=== PATIENT | female | born 1945 | race Caucasian/White ===

== ENCOUNTER → 2018-11-18 | Outpatient (CLI) | payer MEDICARE ==
[~2018-11-18] VITALS: Ht 152.4 cm; Wt 64.9 kg
[~2018-11-18] MED LIST: ALBU18HF7 IH; ALPR-410 PO; ARFO15VI3 IH; DOXY100C2 PO; LEVA0.6319 IH; METO25TA6 PO; MOME13HF3 IH; OMEG1CAP67 PO; PRAV80TA21 PO; PRED20B PO; REGADENOSON 0.4 MG/5 ML PF SYG IVP SCH; SERT100T PO; SERT50TA PO; VALS1TAB2 PO
== END | disposition home or self-care (01) ==
LOC: SHCH 08:30
PROVIDERS: ATTEND Internal Medicine Cardiovascular Disease
DX: I25.10 Atherosclerotic heart disease of native coronary artery without angina pectoris (principal)
CPT/HCPCS: 78452; 93017; 96374; A9500 ×2; J2785

== ENCOUNTER 2018-12-20 11:03 | Inpatient (IN) | payer MEDICARE ==
[~2018-12-20] VITALS: Ht 152.4 cm; Wt 66.4 kg
[~2018-12-20 11:03] MED LIST changes: -REGADENOSON 0.4 MG/5 ML PF SYG IVP SCH
[2018-12-20 11:50] LABS: ABG BASE EXCESS 4.5 mmol/L (-2.0-3.0); ABG HCO3 29.5 mmol/L (21.0-28.0); ABG OXYGEN SATURATION 89.1 % (95.0-99.0); ABG PCO2 45 mmHg (32-45)
[2018-12-20 12:07] LABS: BASOPHILS % (AUTO) 0.9 % (0.0-5.0); EOSINOPHILS % (AUTO) 3.5 % (0.0-8.0); HEMATOCRIT 26.7 % (36-48); LYMPHOCYTES % (AUTO) 13.2 % (21.0-51.0); MEAN CORPUSCULAR HEMOGLOBIN 28.2 pg (27.0-33.0); MEAN CORPUSCULAR VOLUME 88.1 fL (79-99); MONOCYTES % (AUTO) 8.4 % (3.0-13.0); PLATELET COUNT (AUTO) 269 K/uL (130-400); RED BLOOD CELL COUNT(AUTO) 3.03 MIL/uL (4.00-5.50); RED CELL DISTRIBUTION WIDTH 18.3 % (11.0-15.5); WHITE BLOOD COUNT (AUTO) 6.9 K/uL (4.8-10.8)
[2018-12-20 12:20] LABS: CARBON DIOXIDE 31 mmol/L (21-32); CHLORIDE 104 mmol/L (101-111); CREATININE 0.6 mg/dL (0.5-1.5); GLOMERULAR FILTR. RATE CALC 104 mL/min (>60); GLUCOSE,RANDOM 100 mg/dL (70-105); PARTIAL THROMBOPLASTIN TIME 21.8 SEC (26.3-35.5); POTASSIUM 4.8 mmol/L (3.5-5.1); PROTHROMBIN TIME 10.5 SEC (9.6-11.6); SODIUM SERUM 142 mmol/L (136-145); UREA NITROGEN, BLOOD 10 mg/dL (7-18)
[2018-12-20 12:24] LABS: ALANINE AMINOTRANSFERASE 28 U/L (12-78); ALBUMIN 3.4 g/dL (3.5-5.0); ASPARTATE AMINOTRANSFERASE 33 U/L (10-37); BILIRUBIN,DIRECT < 0.1 mg/dL (0.0-0.3); BILIRUBIN,TOTAL 0.2 mg/dL (0.2-1.0); CREATINE KINASE, TOTAL 121 U/L (21-232); TOTAL PROTEIN, SERUM 6.8 g/dL (6.0-8.3)
[2018-12-20] MEDS ORDERED: IPRATROPIUM/ALBUTEROL SULFATE 3 ML SOLUTION IH ONE ×2 (12:25→16:12)
[2018-12-20] MEDS ORDERED: METHYLPREDNISOLONE SOD SUCC 125MG/2ML VIAL ONE (12:27)
[2018-12-20] MEDS ORDERED: ACETAMINOPHEN 325 MG TAB PO PRN ×2 (14:00)
[2018-12-20] MEDS: IPRATROPIUM/ALBUTEROL SULFATE 3 ML SOLUTION IH SCH ×3 (16:17→22:16)
[2018-12-20] MEDS ORDERED: BENZONATATE 100 MG CAPSULE PO ONE ×2 (16:42→21:22)
[2018-12-20] MEDS ORDERED: ONDANSETRON HCL 4 MG/2 ML VIAL IVP PRN (19:15)
[2018-12-20] MEDS: METHYLPREDNISOLONE SOD SUCC 125MG/2ML VIAL IVP SCH (20:00)
[2018-12-20] MEDS: BENZONATATE 100 MG CAPSULE PO SCH (21:00)
[2018-12-20] MEDS ORDERED: METHYLPREDNISOLONE SOD SUCC 40MG/ML 1ML ONE (21:21)
[2018-12-20] MEDS ORDERED: FAMOTIDINE 20MG TAB 20 MG TAB ONE (21:22)
[2018-12-20] MEDS ORDERED: CLOP75TA14 PO (23:25)
[2018-12-20] MEDS ORDERED: TIOT18CA3 IH (23:48)
[2018-12-21] MEDS ORDERED: PNEUMOCOCCAL VACCINE POLYVALENT 0.5 ML/VIAL [PPV] IM ONE ×2 (00:15)
[2018-12-21] MEDS: IPRATROPIUM/ALBUTEROL SULFATE 3 ML SOLUTION IH SCH ×6 (01:34→21:35)
[2018-12-21] MEDS: METHYLPREDNISOLONE SOD SUCC 125MG/2ML VIAL IVP SCH ×5 (02:00→21:07)
[2018-12-21] MEDS ORDERED: METHYLPREDNISOLONE SOD SUCC 40MG/ML 1ML ONE ×2 (05:53→12:47)
[2018-12-21] MEDS ORDERED: ENOXAPARIN SODIUM 30 MG/0.3 ML SQ ONE (08:00)
[2018-12-21] MEDS ORDERED: BENZONATATE 100 MG CAPSULE PO ONE (08:00)
[2018-12-21] MEDS ORDERED: FAMOTIDINE 20MG TAB 20 MG TAB ONE (08:00)
[2018-12-21] MEDS: FAMOTIDINE 20MG TAB 20 MG TAB PO SCH (09:00)
[2018-12-21] MEDS: BENZONATATE 100 MG CAPSULE PO SCH ×4 (09:00→21:07)
[2018-12-21] MEDS: ENOXAPARIN SODIUM 30 MG/0.3 ML SQ SCH (09:00)
[2018-12-21] MEDS ORDERED: IPRATROPIUM/ALBUTEROL SULFATE 3 ML SOLUTION IH ONE ×2 (09:35→13:29)
--- NOTE | 2018-12-21 12:02 | NUR ---
DCP: HOME met with pt and her Reinaldo Cook [phone]. Pt states they do not live together but are still . Pt reports she is independent of all ADLS, have no DME or in home care services. Plan is to [place] home at [place] Addendum: 12/21/18 at 1204 by AISLINN PANTOJA SS Amended: Links added.
[2018-12-21 14:10] VITALS: BP 152/71
[2018-12-21 16:27] VITALS: BP 159/67
[2018-12-21 19:12] VITALS: BP 125/61
[2018-12-21] MEDS: SIMVASTATIN 20 MG TABLET PO SCH (19:52)
[2018-12-21] MEDS: METOPROLOL TARTRATE 25 MG TAB PO SCH (19:52)
[2018-12-21] MEDS: ALPRAZOLAM 0.5 MG TABLET PO PRN (21:17)
[2018-12-21] MEDS: AZITHROMYCIN 500MG+NS 250ML 250 ML IV SCH (22:42)
[2018-12-21 23:38] VITALS: BP 133/72
[2018-12-22] MEDS: IPRATROPIUM/ALBUTEROL SULFATE 3 ML SOLUTION IH SCH ×6 (02:02→21:41)
[2018-12-22] MEDS: METHYLPREDNISOLONE SOD SUCC 125MG/2ML VIAL IVP SCH ×2 (02:21→08:44)
[2018-12-22 03:39] VITALS: BP 141/76
[2018-12-22 05:24] LABS: BASOPHILS % (AUTO) 0.1 % (0.0-5.0); HEMATOCRIT 23.7 % (36-48); LYMPHOCYTES % (AUTO) 3.5 % (21.0-51.0); MEAN CORPUSCULAR HEMOGLOBIN 28.7 pg (27.0-33.0); MEAN CORPUSCULAR HGB CONC 32.9 g/dL (32.0-36.0); MEAN CORPUSCULAR VOLUME 87.3 fL (79-99); MONOCYTES % (AUTO) 2.2 % (3.0-13.0); NEUTROPHILS % (AUTO) 94.2 % (40.0-77.0); PLATELET COUNT (AUTO) 265 K/uL (130-400); RED BLOOD CELL COUNT(AUTO) 2.72 MIL/uL (4.00-5.50); WHITE BLOOD COUNT (AUTO) 5.8 K/uL (4.8-10.8)
[2018-12-22 05:39] LABS: ALBUMIN 3.4 g/dL (3.5-5.0); BILIRUBIN,TOTAL 0.2 mg/dL (0.2-1.0); CREATININE 0.6 mg/dL (0.5-1.5); POTASSIUM 4.2 mmol/L (3.5-5.1); TOTAL PROTEIN, SERUM 6.7 g/dL (6.0-8.3)
[2018-12-22 07:54] VITALS: BP 162/87
[2018-12-22] MEDS: ENOXAPARIN SODIUM 30 MG/0.3 ML SQ SCH (08:44)
[2018-12-22] MEDS: FAMOTIDINE 20MG TAB 20 MG TAB PO SCH (08:44)
[2018-12-22] MEDS: METOPROLOL TARTRATE 25 MG TAB PO SCH ×2 (08:44→22:34)
[2018-12-22] MEDS: CLOPIDOGREL BISULFATE 75 MG TAB PO SCH (08:45)
[2018-12-22] MEDS: BENZONATATE 100 MG CAPSULE PO SCH ×3 (08:45→22:36)
[2018-12-22 11:43] VITALS: BP 164/64
[2018-12-22] MEDS ORDERED: CEFTRIAXONE SODIUM 2 GM VIAL IVP SCH (12:00)
[2018-12-22] MEDS: LOSARTAN 50 MG TABLET PO SCH (12:00)
[2018-12-22] MEDS: GUAIFENESIN/DEXTROMETHORPHAN 1 EACH TAB.SR.12H PO SCH ×2 (12:00→22:34)
[2018-12-22] MEDS ORDERED: SODIUM CHLORIDE 0.9% 1000ML 1,000 ML IV SCH (12:01)
[2018-12-22] MEDS ORDERED: GUAIFENESIN 600 MG TABLET.ER PO ONE (12:11)
[2018-12-22] MEDS ORDERED: LOSARTAN 50 MG TABLET ONE (12:11)
[2018-12-22] MEDS ORDERED: CEFTRIAXONE SODIUM 1 GM ONE (12:13)
[2018-12-22] MEDS: PHARMACY COMMUNICATION MISC SCH ×2 (12:45→20:45)
[2018-12-22] MEDS ORDERED: FUROSEMIDE 10 MG/ML 4ML VIAL ONE (14:25)
[2018-12-22] MEDS ORDERED: FUROSEMIDE 10 MG/ML 2ML VIAL IV SCH ×2 (14:30→16:00)
[2018-12-22] MEDS ORDERED: MAGNESIUM 2GM PREMIX 50ML 50 ML IV PRN (14:30)
[2018-12-22 14:37] LABS: ABG BASE EXCESS -6.7 mmol/L (-2.0-3.0); ABG HCO3 21.9 mmol/L (21.0-28.0); ABG OXYGEN SATURATION 87.2 % (95.0-99.0); ABG PCO2 60 mmHg (32-45)
[2018-12-22] MEDS ORDERED: METHYLPREDNISOLONE SOD SUCC 125MG/2ML VIAL IVP SCH (15:00)
[2018-12-22] MEDS ORDERED: SODIUM BICARB 50MEQ 50ML VIAL IV SCH (15:15)
--- NOTE | 2018-12-22 15:26 | NUR ---
ARRIVAL TO ROOM 226 PT IS AAOX3 DENIES CP DENIES NV, STATES SOB ON EXERTION, BUT IS CALM NOW. CURRENTLY ON NONREBREAHTER MASK. FAMILY IS AT BEDSIDE, CALL LIGHT WITHIN REACH.
[2018-12-22 15:30] VITALS: BP 165/104
[2018-12-22] MEDS: METHYLPREDNISOLONE SOD SUCC 40MG/ML 1ML IVP SCH ×2 (15:37→22:36)
--- NOTE | 2018-12-22 18:27 | NUR ---
STATUS RESTING IN BED NO COMPLAINTS, REMAINS ON BIPAP. TOLERATING WELL.
[2018-12-22 19:00] VITALS: BP 134/68
[2018-12-22] MEDS ORDERED: NON-FORMULARY MEDICATION 1 EACH (Sertraline HCl (Zoloft) 100 MG) PO SCH (21:00)
[2018-12-22] MEDS: VALSARTAN PO SCH (21:00)
[2018-12-22] MEDS: HYDROCHLOROTHIAZIDE PO SCH (21:00)
[2018-12-22] MEDS: DOCUSATE SODIUM 100 MG CAP PO SCH (22:34)
[2018-12-22] MEDS: SERTRALINE HCL 50 MG TABLET PO SCH (22:35)
[2018-12-22] MEDS: SIMVASTATIN 20 MG TABLET PO SCH (22:35)
[2018-12-22] MEDS: SENNOSIDES 8.6 MG TABLET PO SCH (22:35)
[2018-12-22] MEDS: AZITHROMYCIN 500MG+NS 250ML 250 ML IV SCH (22:36)
[2018-12-22 23:00] VITALS: BP 132/62
[2018-12-22] MEDS: ALPRAZOLAM 0.5 MG TABLET PO PRN (23:20)
[2018-12-23] MEDS: IPRATROPIUM/ALBUTEROL SULFATE 3 ML SOLUTION IH SCH ×6 (01:55→22:08)
[2018-12-23 03:50] LABS: BASOPHILS % (AUTO) 0.1 % (0.0-5.0); HEMATOCRIT 24.4 % (36-48); LYMPHOCYTES % (AUTO) 4.4 % (21.0-51.0); MEAN CORPUSCULAR HEMOGLOBIN 27.7 pg (27.0-33.0); MEAN CORPUSCULAR VOLUME 86.7 fL (79-99); MONOCYTES % (AUTO) 4.2 % (3.0-13.0); NEUTROPHILS % (AUTO) 91.3 % (40.0-77.0); PLATELET COUNT (AUTO) 312 K/uL (130-400); RED BLOOD CELL COUNT(AUTO) 2.81 MIL/uL (4.00-5.50); RED CELL DISTRIBUTION WIDTH 18.4 % (11.0-15.5)
[2018-12-23 04:00] VITALS: BP 142/72
[2018-12-23 04:08] LABS: CREATININE 0.7 mg/dL (0.5-1.5); MAGNESIUM 2.1 mg/dL (1.80-2.40); POTASSIUM 3.7 mmol/L (3.5-5.1)
[2018-12-23] MEDS: PHARMACY COMMUNICATION MISC SCH (04:45)
[2018-12-23] MEDS: METHYLPREDNISOLONE SOD SUCC 40MG/ML 1ML IVP SCH ×3 (06:25→21:33)
[2018-12-23] MEDS: LOSARTAN 50 MG TABLET PO SCH (07:25)
[2018-12-23] MEDS: METOPROLOL TARTRATE 25 MG TAB PO SCH ×2 (07:25→21:32)
[2018-12-23] MEDS: GUAIFENESIN/DEXTROMETHORPHAN 1 EACH TAB.SR.12H PO SCH ×2 (07:25→21:32)
[2018-12-23] MEDS: BENZONATATE 100 MG CAPSULE PO SCH ×3 (07:25→21:32)
[2018-12-23] MEDS: ENOXAPARIN SODIUM 30 MG/0.3 ML SQ SCH (07:25)
[2018-12-23] MEDS: CLOPIDOGREL BISULFATE 75 MG TAB PO SCH (07:25)
[2018-12-23] MEDS: FAMOTIDINE 20MG TAB 20 MG TAB PO SCH (07:25)
[2018-12-23 07:30] VITALS: BP 136/61
--- NOTE | 2018-12-23 07:30 | NUR ---
ASSESSMENT PT IS AAOX3 DENIES CP DENIES SOB DENIES NV NO COMPLAINTS AT THIS TIME, CURRENTLY ON O2 3LPM, RECEIVED NEB TREATMENT BY RT. VISITOR AT BEDSIDE, AM MEDS GIVEN AND TOLERATED. CALL LIGHT WITHIN REACH.
[2018-12-23 11:41] VITALS: BP 130/62
--- NOTE | 2018-12-23 12:22 | NUR ---
MBSS COMPLETED. SHALLOW TRANSIENT PENETRATION WITH THIN LIQUIDS VIA LARGE CUP SIP. RECOMMEND REGULAR TEXTURE, THIN LIQUIDS; PILLS WHOLE WITH LIQUIDS. Addendum: 12/23/18 at 1223 by IVON JOHNSON, [facility] Amended: Links added.
[2018-12-23 15:27] VITALS: BP 139/75
--- NOTE | 2018-12-23 15:35 | NUR ---
2D ECHO AT BEDSIDE
[2018-12-23] MEDS ORDERED: SODIUM CHLORIDE 3% FOR INHALATION 4 ML/AMP VIAL.NEB IH ONE ×2 (18:22→22:02)
[2018-12-23 19:00] VITALS: BP 142/69
--- NOTE | 2018-12-23 19:45 | NUR ---
SPOKE TO KARIME AWAD, ABOUT MARIA DOLORES ([id number]) FROM PHARMACY CONTACTING ME, LIZABETH WROTE ORDER FOR IRON SUCROSE 500MG QD AND IS QUESTIONING THE ORDER D/T PT HAS LOW BLOOD COUNT, KARIME WILL ADDRESS THE ISSUE.
[2018-12-23] MEDS ORDERED: COMPOUND IV MISC 1 EACH IVSOLN MISC PRN (20:00)
[2018-12-23] MEDS: VALSARTAN PO SCH (21:00)
[2018-12-23] MEDS: HYDROCHLOROTHIAZIDE PO SCH (21:00)
[2018-12-23] MEDS: SERTRALINE HCL 50 MG TABLET PO SCH (21:31)
[2018-12-23] MEDS: AZITHROMYCIN 500MG+NS 250ML 250 ML IV SCH (21:31)
[2018-12-23] MEDS: SENNOSIDES 8.6 MG TABLET PO SCH (21:31)
[2018-12-23] MEDS: DOCUSATE SODIUM 100 MG CAP PO SCH (21:32)
[2018-12-23] MEDS: SIMVASTATIN 20 MG TABLET PO SCH (21:33)
--- NOTE | 2018-12-23 22:20 | NUR ---
ASSESSMENT PT SITTING AT BEDSIDE, NC AT 3L, DENIES SOB, DENIES ANY CHEST PAIN, NO FAMILY AT BEDSIDE, CALL LIGHT WITHIN REACH.
[2018-12-23 23:00] VITALS: BP 163/74
[2018-12-23] MEDS: ALPRAZOLAM 0.5 MG TABLET PO PRN (23:34)
[2018-12-24] MEDS ORDERED: SODIUM CHLORIDE 3% FOR INHALATION 4 ML/AMP VIAL.NEB IH ONE (01:41)
[2018-12-24] MEDS: IPRATROPIUM/ALBUTEROL SULFATE 3 ML SOLUTION IH SCH ×4 (01:46→14:01)
[2018-12-24 03:00] VITALS: BP 153/74
[2018-12-24 03:48] LABS: MEAN CORPUSCULAR HGB CONC 31.9 g/dL (32.0-36.0); MEAN CORPUSCULAR VOLUME 87.6 fL (79-99); NUCLEATED RED BLOOD CELLS 0.1 % (0.0-0.19); PLATELET COUNT (AUTO) 260 K/uL (130-400); RED BLOOD CELL COUNT(AUTO) 2.86 MIL/uL (4.00-5.50); RED CELL DISTRIBUTION WIDTH 18.3 % (11.0-15.5); WHITE BLOOD COUNT (AUTO) 6.3 K/uL (4.8-10.8)
[2018-12-24 04:00] LABS: PHOSPHORUS 3.8 mg/dL (2.5-4.9)
[2018-12-24 04:37] LABS: % IRON SATURATION 2.5 % (22-44)
[2018-12-24] MEDS: METHYLPREDNISOLONE SOD SUCC 40MG/ML 1ML IVP SCH (05:32)
--- NOTE | 2018-12-24 07:00 | NUR ---
RESPIRATORY CULTURE HAS BEEN ATTEMPTED THREE TIMES, PER SWETA TO CONTINUE TO TRY AND COLLECT
[2018-12-24 08:03] VITALS: BP 141/74
[2018-12-24] MEDS ORDERED: IRON SUCROSE COMPLEX 100 MG in SODIUM CHLORIDE 0.9% 50 ML IV SCH (09:00)
[2018-12-24] MEDS ORDERED: EPOETIN ALFA 10,000 UNIT/ML VIAL SQ SCH (09:00)
[2018-12-24] MEDS ORDERED: METHYLPREDNISOLONE SOD SUCC 40MG/ML 1ML IVP SCH (09:15)
[2018-12-24] MEDS ORDERED: LEVOFLOXACIN 500 MG/D5W 100 ML 100 ML IV SCH (09:15)
[2018-12-24] MEDS: CLOPIDOGREL BISULFATE 75 MG TAB PO SCH (09:54)
[2018-12-24] MEDS: BENZONATATE 100 MG CAPSULE PO SCH ×2 (09:54→15:16)
[2018-12-24] MEDS: GUAIFENESIN/DEXTROMETHORPHAN 1 EACH TAB.SR.12H PO SCH (09:54)
[2018-12-24] MEDS: METOPROLOL TARTRATE 25 MG TAB PO SCH (09:54)
[2018-12-24] MEDS: LOSARTAN 50 MG TABLET PO SCH (09:54)
[2018-12-24] MEDS: ENOXAPARIN SODIUM 30 MG/0.3 ML SQ SCH (09:54)
[2018-12-24] MEDS: FAMOTIDINE 20MG TAB 20 MG TAB PO SCH (09:54)
[2018-12-24 11:46] VITALS: BP 159/76
--- NOTE | 2018-12-24 12:16 | NUR ---
FOLLOW UP COMPLETED. Pt CURRENTLY TOLERATING DIET. NO OVERT S/S OF ASPIRATION PRESENT DURING MEAL/TRIALS. SAFE SWALLOW PRECAUTIONS OF SMALL BITES AND SIPS AND SLOW RATE IN PLACE AT THIS TIME. MANAGER RAIL COORDINATED CARE WITH NURSE ESPARZA. MANAGER RAIL WILL CONTINUE TO FOLLOW Pt. Addendum: 12/24/18 at 1218 by IVON JOHNSON, [facility] Amended: Links added.
[2018-12-24] MEDS ORDERED: PNEUMOCOCCAL VACCINE POLYVALENT 0.5 ML/VIAL [PPV] ONE (15:09)
[2018-12-24 15:36] VITALS: BP_SYST 100; BP_SYST 154; BP_DIAS 70; BP_DIAS 77
--- NOTE | 2018-12-24 16:00 | NUR ---
GAVE REPORT TO [facility].
[2018-12-24] MEDS: ALPRAZOLAM 0.5 MG TABLET PO PRN (16:06)
--- NOTE | 2018-12-24 16:11 | NUR ---
PATIENT TAKEN BY EMS TO [facility].
== END 2018-12-24 16:10 | DRG 177 ==
LOC: EDH 11:03 → EDHIP 13:54 → 4AH 12-21 13:39 → 2DH 12-22 15:47
PROVIDERS: ADMIT Internal Medicine; ATTEND Internal Medicine
PROC: 3E0234Z Introduction of Serum, Toxoid and Vaccine into Muscle, Percutaneous Approach (ICD-10-PCS; 2018-12-21)
PROC: 5A09357 Assistance with Respiratory Ventilation, Less than 24 Consecutive Hours, Continuous Positive Airway Pressure (ICD-10-PCS; principal; 2018-12-22)
DX: J69.0 Pneumonitis due to inhalation of food and vomit (principal); I50.31 Acute diastolic (congestive) heart failure; J96.22 Acute and chronic respiratory failure with hypercapnia; J96.21 Acute and chronic respiratory failure with hypoxia; J44.1 Chronic obstructive pulmonary disease with (acute) exacerbation; J44.0 Chronic obstructive pulmonary disease with (acute) lower respiratory infection; I82.409 Acute embolism and thrombosis of unspecified deep veins of unspecified lower extremity; D64.9 Anemia, unspecified; I11.0 Hypertensive heart disease with heart failure; I25.10 Atherosclerotic heart disease of native coronary artery without angina pectoris; I73.9 Peripheral vascular disease, unspecified; J20.9 Acute bronchitis, unspecified; K21.9 Gastro-esophageal reflux disease without esophagitis; Z79.02 Long term (current) use of antithrombotics/antiplatelets; Z23 Encounter for immunization; Z79.82 Long term (current) use of aspirin; Z86.718 Personal history of other venous thrombosis and embolism; Z87.891 Personal history of nicotine dependence; Z90.710 Acquired absence of both cervix and uterus; Z99.81 Dependence on supplemental oxygen; Z90.49 Acquired absence of other specified parts of digestive tract; Z88.1 Allergy status to other antibiotic agents; Z88.0 Allergy status to penicillin; Z88.8 Allergy status to other drugs, medicaments and biological substances; I25.2 Old myocardial infarction
CPT/HCPCS: 36415; 36600; 71045; 71250; 74230; 80048; 80053; 80076; 82435; 82550; 82728; 82803; 82947; 83540; 83550; 83605; 83735; 83880; 84100; 84132; 84145; 84295; 84484; 85018; 85025; 85027; 85610; 85730; 90732; 92611; 93005; 93306; 94640; 94660; 94664; G0378; J0456; J0696; J0885; J1650; J1756; J1940; J1956; J2920; J2930; J3490

== ENCOUNTER → 2019-04-27 | Outpatient (CLI) | payer MEDICARE ==
[~2019-04-27] MED LIST changes: +CLOP75TA14 PO; -DOXY100C2 PO; -PRED20B PO; +TIOT18CA3 IH
== END | disposition home or self-care (01) ==
LOC: SHCH 09:54
PROVIDERS: ATTEND Internal Medicine Cardiovascular Disease
DX: R09.89 Other specified symptoms and signs involving the circulatory and respiratory systems (principal)
CPT/HCPCS: 93880